=== PATIENT | female | born 1990 | race Asian ===

== ENCOUNTER → 2016-07-16 | Outpatient (REF) | payer SELFPAY ==
[2016-07-16 17:33] LABS: BASO % 0.5 % (0.0-1.0); EOS # 0.2 K/mm3 (0.0-0.50); EOS % 4.3 % (0.0-3.0); LARGE UNSTAINED CELL # 0.1 K/mm3 (0.0-0.4); LARGE UNSTAINED CELL % 1.9 % (0.0-4.0); LYMPH # 2.5 K/mm3 (1.5-6.5); LYMPH % 39.3 % (24.0-44.0); MEAN CORPUSCULAR HEMOGLOBIN 29.2 pg (27.0-33.0); MEAN CORPUSCULAR HGB CONC 33.2 g/dl (32.0-36.5); MEAN CORPUSCULAR VOLUME 88.2 fl (80.0-96.0); MONO # 0.5 K/mm3 (0.0-0.8); MONO % 8.2 % (0.0-5.0); NEUTROPHILS # 2.7 K/mm3 (1.8-7.7); NEUTROPHILS % 45.7 % (36.0-66.0); PLATELET COUNT, AUTOMATED 287 k/mm3 (150-450); RED CELL DISTRIBUTION WIDTH 12.2 % (11.5-14.5); WHITE BLOOD COUNT 5.9 K/mm3 (4.0-10.0)
== END ==
LOC: M LAB REF 16:14
PROVIDERS: ATTEND Physician Assistant
DX: R10.30 Lower abdominal pain, unspecified (principal)

== ENCOUNTER 2019-02-13 12:26 | Inpatient (IN) | payer OTHER ==
[~2019-02-13] VITALS: Ht 147.3 cm; Wt 79.3 kg
[2019-02-13] MEDS ORDERED: BENZ-18 PO (12:50)
[2019-02-13] MEDS ORDERED: AMOX875T2 PO (12:50)
[2019-02-13 13:14] LABS: HEMOGLOBIN 14.7 g/dl (12.0-15.5); MEAN CORPUSCULAR HEMOGLOBIN 28.4 pg (27.0-33.0); MEAN CORPUSCULAR HGB CONC 32.7 g/dl (32.0-36.5); PLATELET COUNT, AUTOMATED 542 10^3/uL (150-450); RED BLOOD COUNT 5.17 10^6/uL (4.00-5.40); WHITE BLOOD COUNT 12.7 10^3/uL (4.0-10.0)
[2019-02-13] MEDS ORDERED: IPRATROPIUM 0.5MG/ALBUTEROL 2.5MG INH SOL UD 3ML (DUONEB)(J7620) NEB ONE (13:30)
[2019-02-13] MEDS ORDERED: HYDROMORPHONE HCL 0.5 MG/ 0.5 ML SYRINGE (J1170 PER 1) IV PRN (13:30)
[2019-02-13] MEDS ORDERED: ALBUTEROL SULFATE 2.5 MG/0.5 ML INH NEB SOLN INH ONE (13:30)
--- NOTE | 2019-02-13 13:34 | REP ---
Two-view chest: 02/13/2019. Indication: Dyspnea. Cough. Comparison: None. Findings: Subtle air space consolidation is present within the right lower lobe. There is no pleural effusion or pneumothorax. The mediastinal silhouette is unremarkable. Impression: Small right lower lobe pneumonia. Electronically Signed by Mike Main DO 02/13/2019 01:26 P
[2019-02-13 13:37] LABS: ATYPICAL LYMPH 3 % (0-5); LYMPHOCYTES 10 % (16-44); METAMYELOCYTES 1 % (0-0); MONOCYTES 2 % (0-5); MYELOCYTES 1 % (0-0); NEUTROPHILS 83 % (28-66); PLATELET ESTIMATE INCREASED (NORMAL)
[2019-02-13 13:39] LABS: BLOOD UREA NITROGEN 9 MG/DL (7-18); CALCIUM LEVEL 9.2 MG/DL (8.5-10.1); CARBON DIOXIDE LEVEL 24 MEQ/L (21-32); CHLORIDE LEVEL 101 MEQ/L (98-107); CREATININE FOR GFR 0.82 MG/DL (0.55-1.30); GLOMERULAR FILTRATION RATE > 60.0 (>60); GLUCOSE, FASTING 168 MG/DL (70-100); SODIUM LEVEL 138 MEQ/L (136-145)
[2019-02-13] MEDS ORDERED: NS 1,000 ML IV ONE (13:45)
[2019-02-13 13:55] LABS: INFLUENZA A AMPLIFICATION NEGATIVE (NEGATIVE); INFLUENZA B AMPLIFICATION NEGATIVE (NEGATIVE)
[2019-02-13] MEDS ORDERED: VENTAER INH (14:55)
[2019-02-13] MEDS ORDERED: PRED50TA PO (14:55)
[2019-02-13] MEDS ORDERED: MUCI1TAB16 PO (14:55)
[2019-02-13] MEDS ORDERED: IPRATROPIUM 0.5MG/ALBUTEROL 2.5MG INH SOL UD 3ML (DUONEB)(J7620) INH PRN (16:45)
[2019-02-13 17:15] VITALS: BP 118/72
[2019-02-13] MEDS: IPRATROPIUM 0.5MG/ALBUTEROL 2.5MG INH SOL UD 3ML (DUONEB)(J7620) INH SCH (18:08)
--- NOTE | 2019-02-13 18:09 | ECGEPIP ---
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
[2019-02-13] MEDS ORDERED: SLF 3 ML SYR IV PRN (18:30)
[2019-02-13 20:00] VITALS: BP 120/64
[2019-02-13] MEDS: SLF 3 ML SYR IV SCH (21:12)
[2019-02-14] MEDS: IPRATROPIUM 0.5MG/ALBUTEROL 2.5MG INH SOL UD 3ML (DUONEB)(J7620) INH SCH ×7 (00:26→23:04)
[2019-02-14] MEDS: LevoFLOXacin IV 750 MG in IV 1 EA IV SCH (00:33)
[2019-02-14 04:00] VITALS: BP 131/65
[2019-02-14] MEDS ORDERED: LevoFLOXacin 750 MG TABLET PO SCH ×2 (06:00)
[2019-02-14] MEDS: SLF 3 ML SYR IV SCH ×3 (06:01→21:38)
--- NOTE | 2019-02-14 07:52 | HPE ---
DATE OF ADMISSION: 02/13/2019 ATTENDING: Dr. Fazal Elena PRIMARY CARE PROVIDER: Dr. Nunu Jimenez. REASON FOR ADMISSION: Hypoxia on room air. HISTORY OF PRESENT ILLNESS: This is a very pleasant 28-year-old female who presented to the emergency room after being hypoxic in her primary care provider's office earlier this morning. The patient states about two weeks ago she noticed that she was having upper respiratory like symptoms which started as a dry violent cough. She states she was unable to sleep at night because of the cough even if she sat up at an angle or straight up. She was evaluated by primary care provider about five days later who states that she had a possible viral upper respiratory illness (URI) and prescribed her Mucinex and an inhaler. She was recommended to followup one week later and she states that during that time she had subjective fevers but did not take her temperature. She noted that her dry cough became productive in nature, more yellow in color. She denied having any chest pain but she does admit to having a sore throat that was from all of the coughing. She states that at her followup though her primary care provider noticed some wheezing and shortness of breath. She also started to complain of ear pain and during that examination she had some ear fullness. She was prescribed Augmentin for ten days but only completed five days of the antibiotic to this date. She went to her primary care provider as scheduled today and at her office she was noted to be satting at 88% on room air and was advised to go to the emergency room (ER) for further evaluation. In the ER chest x-ray showed a small right lower lobe pneumonia and hypoxia on room air satting at 87%. The hospitalist team was then called for admission. PAST MEDICAL HISTORY: 1. History of bilateral plantar fascitis. 2. Possible exercise induced asthma, currently not on inhalers. PAST SURGICAL HISTORY: [place]it teeth removed in 2013. FAMILY HISTORY: Father alive with diabetes. Mother alive with no pertinent medical history. Grandmother colon cancer. One sister with no medical problems. SOCIAL HISTORY: Denies being sexually active. No recent pets. Admits to alcohol use but last alcohol use was five months prior. Denies any tobacco abuse or vaping. Denies any sexual history as well. ALLERGIES: Denies any known drug allergies. HOME MEDICATIONS: - Ibuprofen 600 mg - Augmentin 875, 125 mg. - Ventolin inhaler - prednisone 50 mg one tablet orally once a day for five days, completed prior to admission. REVIEW OF SYSTEMS: Unless stated above, the remaining ten point review of systems is negative. PHYSICAL EXAMINATION: Vital signs: Temperature 98.8, pulse 77, respiratory rate 20, blood pressure 118/72 (87) pulse ox 96% on 2 liters of nasal cannula). General: This is a pleasant 28-year-old female who appears in mild distress. She is using accessory muscles, appears pale with intermittent bilateral hand tremors. HEENT: Normocephalic atraumatic. Pupils equal, round, and reactive. Extraocular movements are intact. No sclerae icterus. Moist mucous membranes. No jugular venous distention (JVD) noted. Lungs: Diffuse bilateral wheezing with decreased air movements throughout. E to A egophony in the right lower lobe with slight decrease in percussion in the right lower lobe as well. Accessory muscle use and mild respiratory distress. Heart: Regular rate and rhythm, no audible murmurs, rubs, gallops. No lower extremity edema. No adenopathy of the cervical nodes noted. Psychiatric: Appropriate mood and affect. Neurologic: No neurologic focal deficits noted. LABORATORY DATA: WBC 12.7, hemoglobin 14.7, hematocrit 45.0, platelets 542. Chemistries: Sodium 138, potassium 4.0, chloride 102, carbon dioxide 24, anion gap 13, BUN 9, creatinine 0.82. Fasting glucose 168, calcium 9.2. Serology: Influenza A and B negative. Microbiology: Blood culture times one pending. IMAGING: Chest x-ray positive for a small right lower pneumonia. ASSESSMENT AND PLAN: This is a 28-year-old female with a pertinent past medical history of reactive airway disease in her childhood who presented to the emergency room (ER) for hypoxia. Hypoxia secondary to right lower lobe pneumonia, can be 24 hour pneumonia who failed outpatient treatment. We will place her on antibiotics, Levaquin for the next five days and monitor her clinical improvement. We have placed her on DuoNebs, and scheduled as needed to help with he wheezing. No additional prednisone will be added while admitted. She completed a five day course of 50 mg prior to presentation. Respiratory panel ordered as well as atypical to see if she is on appropriate coverage. Recommendations do include that once clinically stable when she follows up with her primary care provider consider getting pulmonary function tests to see if she has underlying asthma. No labs were ordered. We will follow clinical improvement once she is clinically stable the patient can be discharged. Deep venous thrombosis (DVT) prophylaxis is actually thromboembolic deterrent stockings (TEDs), sequentials and activity as tolerated. DISPOSITION: Possible one to two nights admission prior to discharge. Patient was seen and examined by me with the residents. I agree with the discharge plan and the above-stated document I was personally present with the resident and personally examined the patient and reviewed the patient's chart. Ulices KENDRICK
[2019-02-14 08:00] VITALS: BP 119/60
[2019-02-14] MEDS ORDERED: INFLUENZA QUADRIVALENT PF VACCINE 0.5ML SYRINGE (90686) IM ONE (09:00)
[2019-02-14 12:00] VITALS: BP 122/62
--- NOTE | 2019-02-14 14:19 | IPNPDOC ---
Date Seen The patient was seen on 02/14/19. Progress Note SUBJECTIVE: Patient seen and examined this morning. She states is feeling much better. Her breathing has improved since being admitted. She still is mouth breathing but doesnt feel as tight in her chest. She would like to know when she can go home, for she needs to tell her boss. She has no complaints today. She would like a work note on the day of discharge. Patient denies chest pain, shortness breath, nausea, vomiting, fevers or chills. OBJECTIVE PHYSICAL EXAMINATION: VITAL SIGNS: Please see below. GENERAL: Pleasant 28-year-old female sitting up in bed awake alert oriented speaking in complete sentences no acute distress HEENT: Moist mucous membranes no elevation in CVP CARDIOVASCULAR: S1 S2 regular no additional heart sounds appreciated. RESPIRATORY: There to auscultate bilaterally in the upper lobes. Wheezing appreciated in the right lower lobe (improving). Mouth breathing with no accessory muscle use. No increased secretion but there adequate productive cough ABDOMINAL: Bowel sounds present abdomen soft and non-tender EXTREMITIES: No clubbing cyanosis or edema NEUROLOGICAL: Spontaneously moves all 4 extremities cranial 2 through 12 grossly intact no gross focal deficits appreciated PSYCHOLOGICAL: Appropriate mood but slightly flat affect LABORATORY DATA, MICROBIOLOGY: Please see below. IMAGING STUDIES: ASSESSMENT AND PLAN: This is a 76-xmdc-npq-year-old female with community acquired pneumonia PROBLEMS: Community Acquired Pneumonia -Hypoxia on admission resolved -Respiratory panel positive for Mycoplasma pneumonia. -c/w Levaquin 750 daily for a total of 5 days -Will add incentive spirometry today to help break up cough -Recommend PFTs upon discharge to assess for possible asthma -HIV testing pending DVT prophylaxis: Teds and sequentials and activity as tolerated DISPOSITION: Pending respiratory status possible discharge in a.m. VS, I&O, [facility] Vital Signs/I&O Vital Signs Date Time Temp Pulse Resp B/P (MAP) Pulse Ox O2 Delivery O2 Flow Rate FiO2 02/14/19 12:00 98.7 96 19 122/62 (82) 97 Room Air 02/14/19 04:00 2.0 I&O- Last 24 Hours up to 6 AM 02/14/19 06:00 Intake Total 270 ml Output Total 1200 ml Balance -930 ml Laboratory Data 24H LABS Laboratory Tests 2 02/13/19 19:35: Microbiology Microbiology 11/18/19 Respiratory Virus Panel (PCR) (DANIEL) - Final, Complete Mycoplasma Pneumoniae 02/13/19 Gram Stain - Final, Resulted 02/13/19 Sputum Culture, Resulted Pending 02/13/19 Blood Culture - Preliminary, Resulted No growth after 24 hours . All specim... GME ATTESTATION GME ATTESTATION My faculty preceptor for this patient encounter was physically present during the encounter and was fully available. All aspects of the patient interview, examination, medical decision making process, and medical care plan development were reviewed and approved by the faculty preceptor. The faculty preceptor is aware and concurs with the plan as stated in the body of this note and will attest to such by his/her cosignature. ATTENDING NOTE Patient was seen and examined by me this morning with the residents. Agree with the above assessment and plan IONA MARI DO Feb 14, 2019 14:19 KRISTINA DISLA MD Feb 15, 2019 14:20
[2019-02-14 16:00] VITALS: BP 128/65
[2019-02-14 20:00] VITALS: BP 118/67
[2019-02-15] MEDS: LevoFLOXacin IV 750 MG in IV 1 EA IV SCH (00:14)
[2019-02-15] MEDS: IPRATROPIUM 0.5MG/ALBUTEROL 2.5MG INH SOL UD 3ML (DUONEB)(J7620) INH SCH ×2 (03:27→07:20)
[2019-02-15 06:00] VITALS: BP 118/73
[2019-02-15] MEDS: SLF 3 ML SYR IV SCH (06:44)
[2019-02-15] MEDS ORDERED: LEVO750T13 PO ×2 (07:27→07:29)
[2019-02-15 08:00] VITALS: BP 118/65
[2019-02-15] MEDS ORDERED: INFLUENZA QUADRIVALENT PF VACCINE 0.5ML SYRINGE (90686) IM ONE (09:00)
[2019-02-15 10:50] LABS: HIV 1&2 SCREEN CENTAUR NEGATIVE (NEGATIVE)
--- NOTE | 2019-02-15 11:36 | DS.PDOC ---
Discharge Summary General Date of Admission Feb 13, 2019 at 15:17 Date of Discharge 02/15/2019 Discharge Summary DISCHARGE DIAGNOSIS: Community Acquired Pneumonia PROCEDURES PERFORMED DURING STAY: None. CONSULTANTS: None. HOSPITAL COURSE: While the patient was admitted he was started on IV antibiotics. Respiratory status improved. Respiratory panel was positive for Mycoplasma. Incentive spirometry was added to help with mucus clearance. She was stable to be discharged today. She was advised to follow-up with her primary care provider to have possible testing of PFTs to see if she has an underlying restrictive lung disease. She is agreeable to this plan. Antibiotics for the remaining 3 days were sent to the pharmacy. DISCHARGE MEDICATIONS: Please see below. ALLERGIES: Please see below. SUBJECTIVE: She has no complaints today. She would like a work note on the day of discharge. Patient denies chest pain, shortness breath, nausea, vomiting, fevers or chills. OBJECTIVE PHYSICAL EXAMINATION: VITAL SIGNS: Please see below. GENERAL: Pleasant 28-year-old female sitting up in bed awake alert oriented speaking in complete sentences no acute distress HEENT: Moist mucous membranes no elevation in CVP CARDIOVASCULAR: S1 S2 regular no additional heart sounds appreciated. RESPIRATORY: Clear to auscultate bilaterally no audible wheezing rhonchus or rales ABDOMINAL: Bowel sounds present abdomen soft and non-tender EXTREMITIES: No clubbing cyanosis or edema NEUROLOGICAL: Spontaneously moves all 4 extremities cranial 2 through 12 grossly intact no gross focal deficits appreciated PSYCHOLOGICAL: Appropriate mood but slightly flat affect LABORATORY DATA, MICROBIOLOGY: Please see below. IMAGING STUDIES: 02/13/2019 Chest x-ray Impression: Small right lower lobe pneumonia. DVT prophylaxis: Teds and sequentials and activity as tolerate ASSESSMENT AND PLAN: This is a 10-h[age]hl[age]-year-old female with community acquired pneumonia PROBLEMS: Community Acquired Pneumonia -Hypoxia on admission resolved -Respiratory panel positive for Mycoplasma pneumonia. -c/w Levaquin 750 daily for a total of 5 days -Recommend PFTs upon discharge to assess for possible asthma -HIV testing Negative DISPOSITION: Home. DISCHARGE CONDITION: Improved and Stable. PROGNOSIS: Good FOLLOW UP: 1. Follow-up with primary care provider in 7-10 days 2. 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 3. Discuss with PCP about possible PFT testing to look for underlying restrictive lung disease 4. If symptoms return or worsen please call your PCP or return to the ER. ACTIVITY: As prior to admission. DIET: As prior to admission TIME SPENT ON DISCHARGE: 50 minutes Vital Signs/I&Os Vital Signs Date Time Temp Pulse Resp B/P (MAP) Pulse Ox O2 Delivery O2 Flow Rate FiO2 02/15/19 08:00 98.3 98 18 118/65 (82) 95 Room Air 02/14/19 04:00 2.0 I&O- Last 24 Hours up to 6 AM 02/15/19 05:59 Intake Total 2510 ml Output Total 2350 ml Balance 160 ml Microbiology Microbiology 02/13/19 Respiratory Virus Panel (PCR) (DANIEL) - Final, Complete Mycoplasma Pneumoniae 02/13/19 Gram Stain - Final, Resulted 02/13/19 Sputum Culture, Resulted Pending 02/13/19 Blood Culture - Preliminary, Resulted No growth after 24 hours . All specim... Discharge Medications Scheduled Levofloxacin (Levofloxacin) 750 Mg Tablet, 1 TAB PO DAILY Scheduled PRN Albuterol Sulfate (Ventolin Hfa) 18 Gm Hfa.aer.ad, 2 PUFF INH Q4H PRN for SOB/COUGH, (Reported) Benzonatate (Benzonatate) 100 Mg Capsule, 100 MG PO TID PRN for COUGH, (Reported) Guaifenesin (Mucinex) 1,200 Mg Tab.er.12h, 1,200 MG PO BID PRN for CONGESTION, (Reported) Allergies Coded Allergies: No Known Allergies (Verified Allergy, Unknown, 02/13/19) GME ATTESTATION GME ATTESTATION My faculty preceptor for this patient encounter was physically present during the encounter and was fully available. All aspects of the patient interview, examination, medical decision making process, and medical care plan development were reviewed and approved by the faculty preceptor. The faculty preceptor is aware and concurs with the plan as stated in the body of this note and will attest to such by his/her cosignature. ATTENDING NOTE Patient was seen and examined by me this morning with the residents. Agree with the above assessment and plan IONA MARI DO Feb 15, 2019 11:36 KRISTINA DISLA MD Feb 15, 2019 14:25
[2019-02-17 00:07] LABS: BODY FLUID CULTURE Not Indicated (.); LEGIONELLA ANTIGEN URINE Negative (Negative); ORGANISM ID Not indicated. (.); SPECIMEN SOURCE Urine (.); URINE STREP PNEUMONIAE ANTIGEN Negative (Negative)
== END 2019-02-15 11:52 | disposition home or self-care (01) | DRG 139 ==
LOC: EDBD 12:26 → M ED 12:26 → M ED INP 15:17 → M PED 18:01
PROVIDERS: ADMIT Internal Medicine; ATTEND Internal Medicine
DX: J18.9 Pneumonia, unspecified organism (principal); Z79.899 Other long term (current) drug therapy

== ENCOUNTER → 2019-05-01 | Outpatient (CLI) | payer BC, OTHER ==
[~2019-05-01] MED LIST: AMOX875T2 PO; BENZ-18 PO; LEVO750T13 PO; MUCI1TAB16 PO; PRED50TA PO; VENTAER INH
--- NOTE | 2019-05-01 10:36 | PFTRPT ---
Site: [facility], [address] [place] [address], [id number] ID: [id number] Name: BRANDO RUBIO Visit Date: 05/01/2019 Second ID: [id number] Referring Doctor: Nunu Jimenez MD Reviewing Doctor: Janusz De Jesus MD Professor Of Biology: Tino NEWELL RRT Age: 29 : 1990 Sex: Female Race: <Unspecified> Height: 59.00 Inches Weight: 173.00 Lbs BSA: 1.73 Order IDs: [id number] Requested Test(s): <RESP-PFT.PFT B/A> Diagnosis: R06.2 test meet the ATS standards for acceptability and repeatability. Pt was given four puffs of albuterol for postbronchodilator. Review Status: Not Reviewed Pre-Bronch Post-Bronch Pred Actual %Pred Actual %Chng SPIROMETRY FVC (L) 3.19 2.92 91 3.04 4 FEV1 (L) 2.73 2.33 85 2.55 9 FEV1/FVC (%) 84 80 94 84 5 FEF 25% (L/sec) 5.17 3.90 75 4.69 20 FEF 50% (L/sec) 4.49 2.78 61 3.57 28 FEF 75% (L/sec) 1.90 0.97 50 1.46 50 FEF 25-75% (L/sec) 3.18 2.21 69 2.93 32 FEF Max (L/sec) 6.26 3.98 63 4.75 19 FIVC (L) 2.92 2.50 -14 FIF 50% (L/sec) 4.03 2.93 72 3.10 5 FIF Max (L/sec) 2.94 3.18 8 MVV (L/min) 98 61 62 Expiratory Time (sec) 7.14 4.99 -30 Back Extrap Vol (L) 0.12 0.08 -33 Time To FEFmax (sec) 0.212 0.128 -39 LUNG VOLUMES SVC (L) 3.16 2.80 88 IC (L) 1.99 2.51 126 ERV (L) 1.17 0.29 25 TGV (L) 2.31 1.90 82 RV (Pleth) (L) 1.14 1.60 140 TLC (Pleth) (L) 4.30 4.40 102 RV/TLC (Pleth) (%) 27 36 134 DIFFUSION DLCOunc (ml/min/mmHg) 22.90 16.05 70 DLCOcor (ml/min/mmHg) 22.90 16.58 72 DL/VA (ml/min/mmHg/L) 5.33 4.59 86 VA (L) 4.30 3.62 84 BHT (sec) 10.40 IVC (L) 2.71 TLC (SB) (L) 3.77 AIRWAYS RESISTANCE Raw (cmH2O/L/s) 1.86 1.96 105 Gaw (L/s/cmH2O) 1.03 0.51 49 sRaw (cmH2O*s) 4.76 4.44 93 sGaw (1/cmH2O*s) 0.20 0.23 112 BLOOD GASES Hgb (gm/dL) 12.4
== END ==
LOC: M CARPUL 09:40
PROVIDERS: ATTEND Family Medicine
DX: R06.2 Wheezing (principal)

== ENCOUNTER → 2019-05-15 | Outpatient (CLI) | payer BC ==
[~2019-05-15] MED LIST changes: +METHACHOLINE KIT (J7674) INH ONE
--- NOTE | 2019-05-15 10:24 | PFTRPT ---
Site: [facility], [address] [place], [address] ID: [id number] Name: BRANDO RUBIO Visit Date: 05/15/2019 Second ID: [id number] Referring Doctor: Nunu Jimenez MD Reviewing Doctor: Janusz De Jesus MD Medical Delivery Driver: Tino NEWELL RRT Age: 29 : 1990 Sex: Female Race: <Unspecified> Height: 59.00 Inches Weight: 173.00 Lbs BSA: 1.73 Order IDs: [id number] Requested Test(s): <RESP-PFT.METH CHAL> Diagnosis: R06.2 of albuterol for postbronchodilator. Review Status: Not Reviewed Pre-Bronch Post-Bronch Pred Actual %Pred Actual %Chng SPIROMETRY FVC (L) 3.19 2.82 88 2.98 5 FEV1 (L) 2.73 2.15 78 2.39 10 FEV1/FVC (%) 84 76 90 80 4 FEF 25% (L/sec) 5.17 4.21 81 4.38 3 FEF 50% (L/sec) 4.49 2.02 45 2.92 44 FEF 75% (L/sec) 1.89 0.84 44 1.22 44 FEF 25-75% (L/sec) 3.18 1.78 56 2.48 39 FEF Max (L/sec) 6.26 4.31 68 4.39 1 FIVC (L) 2.75 2.61 -5 FIF 50% (L/sec) 4.03 2.81 69 2.40 -14 FIF Max (L/sec) 3.01 2.96 -1 Expiratory Time (sec) 6.90 6.47 -6 Back Extrap Vol (L) 0.08 0.08 9 Time To FEFmax (sec) 0.130 0.167 28
== END ==
LOC: M CARPUL 09:49
PROVIDERS: ATTEND Family Medicine
DX: R06.2 Wheezing (principal)
CPT/HCPCS: 94070; J7674

== ENCOUNTER → 2019-06-28 | Outpatient (REF) | payer BC ==
[~2019-06-28] MED LIST changes: -METHACHOLINE KIT (J7674) INH ONE
[2019-06-28 14:03] LABS: THYROID STIMULATING HORMONE 7.22 uIU/ML (0.358-3.740)
== END ==
LOC: M SFHCPLAZ 09:26
PROVIDERS: ATTEND Family Medicine
DX: L65.9 Nonscarring hair loss, unspecified (principal)

== ENCOUNTER → 2019-06-30 | Outpatient (REF) | payer BC ==
[2019-06-30 13:52] LABS: FREE T4 1.03 NG/DL (0.76-1.46); THYROID STIMULATING HORMONE 6.88 uIU/ML (0.358-3.740)
== END ==
LOC: M SFHCPLAZ 09:14
PROVIDERS: ATTEND Family Medicine
DX: R79.89 Other specified abnormal findings of blood chemistry (principal)

== ENCOUNTER → 2019-12-22 | Outpatient (CLI) | payer BC ==
[2019-12-22 11:51] LABS: FREE T4 1.26 NG/DL (0.76-1.46); THYROID STIMULATING HORMONE 6.86 uIU/ML (0.358-3.740)
== END ==
LOC: M PLALAB 08:48
PROVIDERS: ATTEND Family Medicine
DX: E03.9 Hypothyroidism, unspecified (principal)

== ENCOUNTER → 2020-04-24 | Outpatient (REF) | payer BC ==
[2020-04-24 11:57] LABS: ALBUMIN 3.6 GM/DL (3.2-5.2); ALT/SGPT 18 U/L (12-78); BILIRUBIN,TOTAL 0.6 MG/DL (0.2-1.0); BLOOD UREA NITROGEN 8 MG/DL (7-18); CARBON DIOXIDE LEVEL 32 MEQ/L (21-32); CHLORIDE LEVEL 104 MEQ/L (98-107); CHOLESTEROL LEVEL 199 MG/DL (<200); CHOLESTEROL RISK RATIO 3.901 (<5); CREATININE FOR GFR 0.66 MG/DL (0.55-1.30); GLOMERULAR FILTRATION RATE > 60.0 (>60); GLUCOSE, FASTING 98 MG/DL (70-100); HDL CHOLESTEROL 51 MG/DL (>40); LDL CHOLESTEROL 130 MG/DL (<100); NON-HDL-C 148 MG/DL; POTASSIUM SERUM 4.4 MEQ/L (3.5-5.1); SODIUM LEVEL 140 MEQ/L (136-145); TOTAL PROTEIN 6.9 GM/DL (6.4-8.2); TRIGLYCERIDES LEVEL 88 MG/DL (<150)
== END ==
LOC: M SFHCPLAZ 09:03
PROVIDERS: ATTEND Family Medicine
DX: Z13.220 Encounter for screening for lipoid disorders (principal); Z13.1 Encounter for screening for diabetes mellitus; E03.9 Hypothyroidism, unspecified

== ENCOUNTER → 2021-09-11 | Outpatient (CLI) | payer BC ==
[2021-09-11 13:22] LABS: BASO % 0.7 % (0.0-1.0); EOS # 0.2 10^3/uL (0.0-0.5); HEMATOCRIT 40.7 % (36.0-47.0); HEMOGLOBIN 13.4 g/dl (12.0-15.5); LYMPH # 2.3 10^3/uL (1.5-5.0); LYMPH % 41.4 % (24.0-44.0); MEAN CORPUSCULAR HEMOGLOBIN 29.5 pg (27.0-33.0); MEAN CORPUSCULAR HGB CONC 32.9 g/dl (32.0-36.5); MEAN CORPUSCULAR VOLUME 89.5 fl (80.0-96.0); MONO # 0.5 10^3/uL (0.0-0.8); MONO % 8.1 % (2.0-8.0); NEUTROPHILS # 2.5 10^3/uL (1.5-8.5); NEUTROPHILS % 45.6 % (36.0-66.0); PLATELET COUNT, AUTOMATED 269 10^3/uL (150-450); RED BLOOD COUNT 4.55 10^6/uL (4.00-5.40); WHITE BLOOD COUNT 5.5 10^3/uL (4.0-10.0)
[2021-09-11 13:30] LABS: AMORPHOUS SEDIMENT SMALL (NEGATIVE); APPEARANCE, URINE TURBID (CLEAR); BACTERIA, URINE AUTO 3+ (NEGATIVE); BILIRUBIN, URINE AUTO NEGATIVE (NEGATIVE); BLOOD, URINE BLOOD NEGATIVE (NEGATIVE); COLOR, URINE YELLOW (YELLOW); GLUCOSE, URINE (UA) AUTO NEGATIVE (NEGATIVE); KETONE, URINE AUTO NEGATIVE (NEGATIVE); LEUKOCYTE ESTERASE, URINE AUTO TRACE (NEGATIVE); MUCUS, URINE MODERATE (NEGATIVE); NITRITE, URINE AUTO NEGATIVE (NEGATIVE); PROTEIN, URINE AUTO NEGATIVE (NEGATIVE); RBC, URINE AUTO 0 /HPF (0-3); SQUAMOUS EPITHELIAL CELL UR AU 3 /HPF (0-6); UROBILINOGEN, URINE AUTO 0.2 mg/dL (0.0-2.0); WBC, URINE AUTO 1 /HPF (0-3)
[2021-09-11 13:39] LABS: ALBUMIN 3.6 GM/DL (3.2-5.2); ALT/SGPT 16 U/L (12-78); BILIRUBIN,TOTAL 0.8 MG/DL (0.2-1.0); BLOOD UREA NITROGEN 7 MG/DL (7-18); CALCIUM LEVEL 8.6 MG/DL (8.5-10.1); CARBON DIOXIDE LEVEL 26 MEQ/L (21-32); CHLORIDE LEVEL 107 MEQ/L (98-107); CREATININE FOR GFR 0.64 MG/DL (0.55-1.30); FREE T4 1.15 NG/DL (0.76-1.46); GLOMERULAR FILTRATION RATE > 60.0 (>60); GLUCOSE, FASTING 95 MG/DL (70-100); POTASSIUM SERUM 4.2 MEQ/L (3.5-5.1); SODIUM LEVEL 140 MEQ/L (136-145); TOTAL PROTEIN 6.9 GM/DL (6.4-8.2)
== END ==
LOC: M PLALAB 09:39
PROVIDERS: ATTEND Physician Assistant
DX: R10.30 Lower abdominal pain, unspecified (principal)

== ENCOUNTER → 2021-10-02 | Outpatient (CLI) | payer BC | LOC: M RAD 16:28 | PROVIDERS: ATTEND Physician Assistant | DX: R10.30 Lower abdominal pain, unspecified (principal) ==

== ENCOUNTER → 2021-10-16 | Outpatient (REF) | payer BC | LOC: M SFHCPLAZ 10:01 | PROVIDERS: ATTEND Physician Assistant | DX: R19.7 Diarrhea, unspecified (principal) ==

== ENCOUNTER → 2021-11-13 | Outpatient (REF) | payer BC ==
[~2021-11-13] MED LIST changes: +LEVO1TAB40 PO; -LEVO750T13 PO
== END ==
LOC: M SFHCPLAZ 15:04
PROVIDERS: ATTEND Physician Assistant
DX: R19.7 Diarrhea, unspecified (principal)

== ENCOUNTER → 2022-07-14 | Outpatient (CLI) | payer BC ==
[2022-07-14 15:12] LABS: BASO % 0.5 % (0.0-1.0); EOS # 0.2 10^3/uL (0.0-0.5); EOS % 2.9 % (0.0-3.0); HEMATOCRIT 42.8 % (36.0-47.0); HEMOGLOBIN 13.6 g/dl (12.0-15.5); LYMPH # 1.8 10^3/uL (1.5-5.0); LYMPH % 31.9 % (24.0-44.0); MEAN CORPUSCULAR HEMOGLOBIN 29.4 pg (27.0-33.0); MEAN CORPUSCULAR HGB CONC 31.8 g/dl (32.0-36.5); MEAN CORPUSCULAR VOLUME 92.4 fl (80.0-96.0); MONO # 0.5 10^3/uL (0.0-0.8); MONO % 8.5 % (2.0-8.0); NEUTROPHILS # 3.1 10^3/uL (1.5-8.5); NEUTROPHILS % 55.7 % (36.0-66.0); PLATELET COUNT, AUTOMATED 296 10^3/uL (150-450); RED BLOOD COUNT 4.63 10^6/uL (4.00-5.40); WHITE BLOOD COUNT 5.5 10^3/uL (4.0-10.0)
[2022-07-14 15:33] LABS: ALBUMIN 3.9 G/DL (3.2-5.2); ALKALINE PHOSPHATASE 52 U/L (46-116); ALT/SGPT 13 U/L (7.0-40); AST/SGOT 14 U/L (<34); BILIRUBIN,TOTAL 0.7 MG/DL (0.3-1.2); BLOOD UREA NITROGEN 20 MG/DL (9-23); CALCIUM LEVEL 8.7 MG/DL (8.5-10.1); CARBON DIOXIDE LEVEL 27 MMOL/L (20-31); CHLORIDE LEVEL 104 MMOL/L (98-107); CHOLESTEROL LEVEL 204 MG/DL (<200); CHOLESTEROL RISK RATIO 3.44 (<5); CREATININE FOR GFR 0.68 MG/DL (0.55-1.30); GLOMERULAR FILTRATION RATE > 60.0 (>60); GLUCOSE, FASTING 104 MG/DL (60-100); HDL CHOLESTEROL 59.2 MG/DL (>40); LDL CHOLESTEROL 129.8 MG/DL (<100); NON-HDL-C 144.8 MG/DL; POTASSIUM SERUM 4.5 MMOL/L (3.5-5.1); RHEUMATOID FACTOR QUANT 5.7 IU/ML (<14); SODIUM LEVEL 137 MMOL/L (136-145); THYROID STIMULATING HORMONE 5.139 uIU/ML (0.55-4.78); TRIGLYCERIDES LEVEL 75 MG/DL (<150)
[2022-07-14 15:41] LABS: HEMOGLOBIN A1c 5.5 % (4.0-6.0)
[2022-07-14 15:55] LABS: ERYTHROCYTE SEDIMENTATION RATE 26 mm/hr (0-20)
[2022-07-14 16:05] LABS: FREE T4 1.12 NG/DL (0.89-1.76)
[2022-07-16 16:09] LABS: ANTI DOUBLE STRAND-DNA AB <1 IU/mL (0-9); ANTINUCLEAR ANTIBODIES DIRECT Positive (Negative); RNP ANTIBODIES <0.2 AI (0.0-0.9); SJOGREN'S ANTI SS-A <0.2 AI (0.0-0.9); SJOGREN'S ANTI SS-B <0.2 AI (0.0-0.9); SMITH ANTIBODIES <0.2 AI (0.0-0.9)
== END ==
LOC: M PLALAB 09:34
PROVIDERS: ATTEND Physician Assistant
DX: M25.50 Pain in unspecified joint (principal); E78.5 Hyperlipidemia, unspecified

== ENCOUNTER → 2022-07-14 | Outpatient (REF) | payer BC | LOC: M SFHCPLAZ 09:42 | PROVIDERS: ATTEND Physician Assistant | DX: Z53.9 Procedure and treatment not carried out, unspecified reason (principal) ==

== ENCOUNTER → 2022-07-21 | Outpatient (REF) | payer BC ==
[2022-07-21 17:49] LABS: BASO % 0.7 % (0.0-1.0); EOS # 0.2 10^3/uL (0.0-0.5); EOS % 2.7 % (0.0-3.0); HEMATOCRIT 40.1 % (36.0-47.0); HEMOGLOBIN 13.1 g/dl (12.0-15.5); LYMPH # 2.3 10^3/uL (1.5-5.0); LYMPH % 38.6 % (24.0-44.0); MEAN CORPUSCULAR HEMOGLOBIN 29.6 pg (27.0-33.0); MEAN CORPUSCULAR HGB CONC 32.7 g/dl (32.0-36.5); MEAN CORPUSCULAR VOLUME 90.7 fl (80.0-96.0); MONO # 0.3 10^3/uL (0.0-0.8); MONO % 5.3 % (2.0-8.0); NEUTROPHILS # 3.2 10^3/uL (1.5-8.5); NEUTROPHILS % 52.5 % (36.0-66.0); PLATELET COUNT, AUTOMATED 311 10^3/uL (150-450); RED BLOOD COUNT 4.42 10^6/uL (4.00-5.40)
[2022-07-21 18:11] LABS: ERYTHROCYTE SEDIMENTATION RATE 20 mm/hr (0-20); URIC ACID 5.8 MG/DL (3.1-7.8)
[2022-07-21 18:14] LABS: C REACTIVE PROTEIN QUANTITATIV < 0.40 MG/DL (<1.0)
[2022-07-21 18:15] LABS: ALBUMIN 3.5 G/DL (3.2-5.2); ALKALINE PHOSPHATASE 54 U/L (46-116); ALT/SGPT 24 U/L (7.0-40); AST/SGOT 21 U/L (<34); BILIRUBIN,TOTAL 0.3 MG/DL (0.3-1.2); BLOOD UREA NITROGEN 9 MG/DL (9-23); CALCIUM LEVEL 8.8 MG/DL (8.5-10.1); CARBON DIOXIDE LEVEL 29 MMOL/L (20-31); CHLORIDE LEVEL 105 MMOL/L (98-107); CREATININE FOR GFR 0.64 MG/DL (0.55-1.30); GLOMERULAR FILTRATION RATE > 60.0 (>60); GLUCOSE, FASTING 114 MG/DL (60-100); POTASSIUM SERUM 4.3 MMOL/L (3.5-5.1); SODIUM LEVEL 140 MMOL/L (136-145); TOTAL PROTEIN 6.5 G/DL (5.7-8.2)
[2022-07-21 18:16] LABS: RHEUMATOID FACTOR QUANT 4.4 IU/ML (<14)
== END ==
LOC: M SFHCPLAZ 16:52
PROVIDERS: ATTEND Physician Assistant
DX: R76.8 Other specified abnormal immunological findings in serum (principal)

== ENCOUNTER → 2023-02-02 | Outpatient (CLI) | payer BC ==
[2023-02-02 15:39] LABS: BASO % 0.7 % (0.0-1.0); EOS # 0.2 10^3/uL (0.0-0.5); EOS % 3.3 % (0.0-3.0); HEMATOCRIT 40.6 % (36.0-47.0); HEMOGLOBIN 13.1 g/dl (12.0-15.5); LYMPH # 2.3 10^3/uL (1.5-5.0); MEAN CORPUSCULAR HEMOGLOBIN 29.2 pg (27.0-33.0); MEAN CORPUSCULAR HGB CONC 32.3 g/dl (32.0-36.5); MEAN CORPUSCULAR VOLUME 90.6 fl (80.0-96.0); MONO # 0.4 10^3/uL (0.0-0.8); MONO % 6.1 % (2.0-8.0); NEUTROPHILS # 3.2 10^3/uL (1.5-8.5); NEUTROPHILS % 52.6 % (36.0-66.0); PLATELET COUNT, AUTOMATED 310 10^3/uL (150-450); RED BLOOD COUNT 4.48 10^6/uL (4.00-5.40); WHITE BLOOD COUNT 6.1 10^3/uL (4.0-10.0)
[2023-02-02 16:10] LABS: ALBUMIN 3.7 G/DL (3.2-5.2); ALKALINE PHOSPHATASE 57 U/L (46-116); ALT/SGPT 13 U/L (7.0-40); AST/SGOT 13 U/L (<34); BILIRUBIN,TOTAL 0.5 MG/DL (0.3-1.2); BLOOD UREA NITROGEN 10 MG/DL (9-23); CALCIUM LEVEL 8.4 MG/DL (8.5-10.1); CARBON DIOXIDE LEVEL 27 MMOL/L (20-31); CHLORIDE LEVEL 105 MMOL/L (98-107); CHOLESTEROL LEVEL 219 MG/DL (<200); CHOLESTEROL RISK RATIO 3.75 (<5); CREATININE FOR GFR 0.53 MG/DL (0.55-1.30); FREE T3 3.3 PG/ML (2.3-4.2); FREE T4 0.99 NG/DL (0.89-1.76); GLOMERULAR FILTRATION RATE > 60.0 (>60); GLUCOSE, FASTING 89 MG/DL (60-100); HDL CHOLESTEROL 58.4 MG/DL (>40); NON-HDL-C 160.6 MG/DL; POTASSIUM SERUM 3.8 MMOL/L (3.5-5.1); SODIUM LEVEL 138 MMOL/L (136-145); THYROID STIMULATING HORMONE 3.857 uIU/ML (0.55-4.78); TOTAL PROTEIN 6.7 G/DL (5.7-8.2); TRIGLYCERIDES LEVEL 78 MG/DL (<150)
== END ==
LOC: M PLALAB 11:09
PROVIDERS: ATTEND Student in an Organized Health Care Education/Training Program
DX: Z76.89 Persons encountering health services in other specified circumstances (principal)

== ENCOUNTER → 2023-02-02 | Outpatient (CLI) | payer BC ==
[2023-02-02 15:35] LABS: TOTAL PROTEIN,RANDOM URINE 14.4 MG/DL (0.0-14.0)
[2023-02-02 15:40] LABS: BASO % 0.5 % (0.0-1.0); CREATININE,RANDOM URINE 86.4 MG/DL; EOS # 0.2 10^3/uL (0.0-0.5); EOS % 3.8 % (0.0-3.0); HEMATOCRIT 40.2 % (36.0-47.0); LYMPH # 2.1 10^3/uL (1.5-5.0); LYMPH % 35.8 % (24.0-44.0); MEAN CORPUSCULAR HEMOGLOBIN 29.3 pg (27.0-33.0); MEAN CORPUSCULAR HGB CONC 32.3 g/dl (32.0-36.5); MEAN CORPUSCULAR VOLUME 90.5 fl (80.0-96.0); MONO # 0.4 10^3/uL (0.0-0.8); NEUTROPHILS # 3.1 10^3/uL (1.5-8.5); NEUTROPHILS % 53.6 % (36.0-66.0); PLATELET COUNT, AUTOMATED 306 10^3/uL (150-450); RED BLOOD COUNT 4.44 10^6/uL (4.00-5.40); WHITE BLOOD COUNT 5.8 10^3/uL (4.0-10.0)
[2023-02-02 15:53] LABS: APPEARANCE, URINE CLEAR (CLEAR); BACTERIA, URINE AUTO NEGATIVE (NEGATIVE); BILIRUBIN, URINE AUTO NEGATIVE (NEGATIVE); BLOOD, URINE BLOOD 2+ (NEGATIVE); COLOR, URINE YELLOW (YELLOW); GLUCOSE, URINE (UA) AUTO NEGATIVE (NEGATIVE); KETONE, URINE AUTO NEGATIVE (NEGATIVE); LEUKOCYTE ESTERASE, URINE AUTO 2+ (NEGATIVE); NITRITE, URINE AUTO NEGATIVE (NEGATIVE); PROTEIN, URINE AUTO NEGATIVE (NEGATIVE); RBC, URINE AUTO 0 /HPF (0-3); SPECIFIC GRAVITY URINE AUTO 1.013 (1.002-1.035); SQUAMOUS EPITHELIAL CELL UR AU 4 /HPF (0-6); TRANSITIONAL EPITHELIAL AUTO <1 /HPF; UROBILINOGEN, URINE AUTO 0.2 mg/dL (0.0-2.0); WBC, URINE AUTO 2 /HPF (0-3)
[2023-02-02 16:05] LABS: CPK CREATINE PHOSPHOKINASE 64 U/L (34-145); LDH LACTATE DEHYDROGENASE 180 U/L (120-246)
[2023-02-02 16:06] LABS: ALBUMIN 3.5 G/DL (3.2-5.2); ALKALINE PHOSPHATASE 57 U/L (46-116); ALT/SGPT 16 U/L (7.0-40); AST/SGOT 16 U/L (<34); BILIRUBIN,TOTAL 0.5 MG/DL (0.3-1.2); BLOOD UREA NITROGEN 9 MG/DL (9-23); CALCIUM LEVEL 8.6 MG/DL (8.5-10.1); CARBON DIOXIDE LEVEL 27 MMOL/L (20-31); CHLORIDE LEVEL 107 MMOL/L (98-107); GLOMERULAR FILTRATION RATE > 60.0 (>60); GLUCOSE, FASTING 91 MG/DL (60-100); POTASSIUM SERUM 4.1 MMOL/L (3.5-5.1); SODIUM LEVEL 143 MMOL/L (136-145); TOTAL PROTEIN 6.6 G/DL (5.7-8.2)
[2023-02-02 16:06] LABS: ERYTHROCYTE SEDIMENTATION RATE 26 mm/hr (0-20)
[2023-02-02 16:07] LABS: COMPLEMENT C3 129.9 MG/DL (84.0-160.0); COMPLEMENT C4 38.6 MG/DL (12-36)
== END ==
LOC: M PLALAB 11:12
PROVIDERS: ATTEND Internal Medicine Rheumatology
DX: M35.3 Polymyalgia rheumatica (principal)

== ENCOUNTER → 2023-03-10 | Outpatient (CLI) | payer BC | LOC: M PLALAB 15:17 | PROVIDERS: ATTEND Internal Medicine Rheumatology | DX: M35.3 Polymyalgia rheumatica (principal); R76.8 Other specified abnormal immunological findings in serum; R68.2 Dry mouth, unspecified ==

== ENCOUNTER → 2023-04-13 | Outpatient (CLI) | payer BC | LOC: M PLAIMG 10:22 | PROVIDERS: ATTEND Internal Medicine Rheumatology | DX: M35.3 Polymyalgia rheumatica (principal); R76.8 Other specified abnormal immunological findings in serum; R68.2 Dry mouth, unspecified; R53.1 Weakness ==

== ENCOUNTER → 2023-05-05 | Outpatient (CLI) | payer BC | LOC: M CARPUL 09:57 | PROVIDERS: ATTEND Internal Medicine Rheumatology | DX: R68.2 Dry mouth, unspecified (principal) ==

== ENCOUNTER → 2023-06-10 | Outpatient (CLI) | payer BC ==
[2023-06-10 11:41] LABS: BASO % 0.5 % (0.0-1.0); EOS # 0.2 10^3/uL (0.0-0.5); HEMATOCRIT 41.3 % (36.0-47.0); HEMOGLOBIN 13.5 g/dl (12.0-15.5); LYMPH # 2.6 10^3/uL (1.5-5.0); LYMPH % 34.1 % (24.0-44.0); MEAN CORPUSCULAR HEMOGLOBIN 29.6 pg (27.0-33.0); MEAN CORPUSCULAR HGB CONC 32.7 g/dl (32.0-36.5); MEAN CORPUSCULAR VOLUME 90.6 fl (80.0-96.0); MONO # 0.4 10^3/uL (0.0-0.8); MONO % 5.3 % (2.0-8.0); NEUTROPHILS # 4.3 10^3/uL (1.5-8.5); NEUTROPHILS % 57.7 % (36.0-66.0); PLATELET COUNT, AUTOMATED 309 10^3/uL (150-450); RED BLOOD COUNT 4.56 10^6/uL (4.00-5.40); WHITE BLOOD COUNT 7.5 10^3/uL (4.0-10.0)
[2023-06-10 11:58] LABS: ERYTHROCYTE SEDIMENTATION RATE 36 mm/hr (0-20)
[2023-06-10 12:08] LABS: ALBUMIN 3.6 G/DL (3.2-5.2); ALKALINE PHOSPHATASE 61 U/L (46-116); ALT/SGPT 18 U/L (7.0-40); AST/SGOT 11 U/L (<34); BILIRUBIN,TOTAL 0.8 MG/DL (0.3-1.2); BLOOD UREA NITROGEN 11 MG/DL (9-23); CARBON DIOXIDE LEVEL 29 MMOL/L (20-31); CHLORIDE LEVEL 105 MMOL/L (98-107); CREATININE FOR GFR 0.69 MG/DL (0.55-1.30); GLOMERULAR FILTRATION RATE > 60.0 (>60); GLUCOSE, FASTING 167 MG/DL (60-100); POTASSIUM SERUM 4.1 MMOL/L (3.5-5.1); SODIUM LEVEL 140 MMOL/L (136-145); TOTAL PROTEIN 6.6 G/DL (5.7-8.2)
== END ==
LOC: M PLALAB 08:22
PROVIDERS: ATTEND Internal Medicine Rheumatology
DX: M35.9 Systemic involvement of connective tissue, unspecified (principal)

== ENCOUNTER → 2023-06-11 | Outpatient (REF) | payer BC | LOC: M SFHCRHEU 14:48 | PROVIDERS: ATTEND Internal Medicine Rheumatology | DX: M35.9 Systemic involvement of connective tissue, unspecified (principal); M35.3 Polymyalgia rheumatica; R76.8 Other specified abnormal immunological findings in serum; R68.2 Dry mouth, unspecified; R53.1 Weakness ==

== ENCOUNTER → 2023-11-30 | Outpatient (CLI) | payer BC ==
[2023-11-30 18:16] LABS: BASO # 0.1 10^3/uL (0.0-0.2); BASO % 0.8 % (0.0-1.0); EOS # 0.2 10^3/uL (0.0-0.5); EOS % 2.7 % (0.0-3.0); HEMATOCRIT 41.8 % (36.0-47.0); HEMOGLOBIN 13.6 g/dl (12.0-15.5); LYMPH # 2.8 10^3/uL (1.5-5.0); MEAN CORPUSCULAR HEMOGLOBIN 29.7 pg (27.0-33.0); MEAN CORPUSCULAR HGB CONC 32.5 g/dl (32.0-36.5); MEAN CORPUSCULAR VOLUME 91.3 fl (80.0-96.0); MONO # 0.5 10^3/uL (0.0-0.8); NEUTROPHILS # 3.6 10^3/uL (1.5-8.5); NEUTROPHILS % 50.2 % (36.0-66.0); PLATELET COUNT, AUTOMATED 334 10^3/uL (150-450); RED BLOOD COUNT 4.58 10^6/uL (4.00-5.40); WHITE BLOOD COUNT 7.1 10^3/uL (4.0-10.0)
[2023-11-30 18:26] LABS: ERYTHROCYTE SEDIMENTATION RATE 30 mm/hr (0-20)
[2023-11-30 18:34] LABS: C REACTIVE PROTEIN QUANTITATIV < 0.40 MG/DL (<1.0)
[2023-11-30 18:35] LABS: ALBUMIN 3.9 G/DL (3.2-5.2); ALKALINE PHOSPHATASE 63 U/L (46-116); ALT/SGPT 15 U/L (7.0-40); AST/SGOT 14 U/L (<34); BILIRUBIN,TOTAL 0.3 MG/DL (0.3-1.2); BLOOD UREA NITROGEN 8 MG/DL (9-23); CALCIUM LEVEL 8.8 MG/DL (8.5-10.1); CARBON DIOXIDE LEVEL 30 MMOL/L (20-31); CHLORIDE LEVEL 105 MMOL/L (98-107); COMPLEMENT C3 131.8 MG/DL (84.0-160.0); CREATININE FOR GFR 0.67 MG/DL (0.55-1.30); GLOMERULAR FILTRATION RATE > 60.0 (>60); GLUCOSE, FASTING 79 MG/DL (60-100); POTASSIUM SERUM 3.8 MMOL/L (3.5-5.1); SODIUM LEVEL 140 MMOL/L (136-145)
[2023-11-30 18:51] LABS: APPEARANCE, URINE HAZY (CLEAR); BACTERIA, URINE AUTO NEGATIVE (NEGATIVE); BILIRUBIN, URINE AUTO NEGATIVE (NEGATIVE); BLOOD, URINE BLOOD NEGATIVE (NEGATIVE); COLOR, URINE YELLOW (YELLOW); GLUCOSE, URINE (UA) AUTO NEGATIVE (NEGATIVE); KETONE, URINE AUTO NEGATIVE (NEGATIVE); LEUKOCYTE ESTERASE, URINE AUTO 3+ (NEGATIVE); NITRITE, URINE AUTO NEGATIVE (NEGATIVE); PROTEIN, URINE AUTO NEGATIVE (NEGATIVE); RBC, URINE AUTO 0 /HPF (0-3); SPECIFIC GRAVITY URINE AUTO 1.017 (1.002-1.035); SQUAMOUS EPITHELIAL CELL UR AU 1 /HPF (0-6); UROBILINOGEN, URINE AUTO 0.2 mg/dL (0.0-2.0); WBC, URINE AUTO 5 /HPF (0-3)
[2023-11-30 19:25] LABS: TOTAL PROTEIN,RANDOM URINE 28.9 MG/DL (0.0-14.0)
[2023-11-30 19:30] LABS: CREATININE,RANDOM URINE 119.1 MG/DL
== END ==
LOC: M PLALAB 14:28
PROVIDERS: ATTEND Internal Medicine Rheumatology
DX: R53.1 Weakness (principal)

== ENCOUNTER → 2023-11-30 | Outpatient (CLI) | payer BC ==
[2023-11-30 18:22] LABS: HEMOGLOBIN A1c 5.5 % (4.0-6.0)
[2023-11-30 18:35] LABS: CHOLESTEROL RISK RATIO 3.96 (<5); FREE T4 1.34 NG/DL (0.89-1.76); HDL CHOLESTEROL 52.5 MG/DL (>40); LDL CHOLESTEROL 131.7 MG/DL (<100); NON-HDL-C 155.5 MG/DL; THYROID STIMULATING HORMONE 9.475 uIU/ML (0.55-4.78)
== END ==
LOC: M PLALAB 14:27
PROVIDERS: ATTEND Student in an Organized Health Care Education/Training Program
DX: E03.9 Hypothyroidism, unspecified (principal)

== ENCOUNTER → 2024-06-21 | Outpatient (CLI) | payer BC ==
[2024-06-21 13:50] LABS: APPEARANCE, URINE CLEAR (CLEAR); BACTERIA, URINE AUTO NEGATIVE (NEGATIVE); BILIRUBIN, URINE AUTO NEGATIVE (NEGATIVE); BLOOD, URINE BLOOD NEGATIVE (NEGATIVE); COLOR, URINE YELLOW (YELLOW); GLUCOSE, URINE (UA) AUTO NEGATIVE (NEGATIVE); KETONE, URINE AUTO NEGATIVE (NEGATIVE); LEUKOCYTE ESTERASE, URINE AUTO TRACE (NEGATIVE); NITRITE, URINE AUTO NEGATIVE (NEGATIVE); PROTEIN, URINE AUTO NEGATIVE (NEGATIVE); RBC, URINE AUTO 1 /HPF (0-3); SPECIFIC GRAVITY URINE AUTO 1.024 (1.002-1.035); SQUAMOUS EPITHELIAL CELL UR AU 3 /HPF (0-6); UROBILINOGEN, URINE AUTO 0.2 mg/dL (0.0-2.0); WBC, URINE AUTO 1 /HPF (0-3)
[2024-06-21 13:59] LABS: BASO % 0.7 % (0.0-1.0); EOS # 0.1 10^3/uL (0.0-0.5); EOS % 2.4 % (0.0-3.0); HEMATOCRIT 40.4 % (36.0-47.0); HEMOGLOBIN 13.2 g/dl (12.0-15.5); LYMPH # 2.1 10^3/uL (1.5-5.0); LYMPH % 36.7 % (24.0-44.0); MEAN CORPUSCULAR HEMOGLOBIN 29.1 pg (27.0-33.0); MEAN CORPUSCULAR HGB CONC 32.7 g/dl (32.0-36.5); MEAN CORPUSCULAR VOLUME 89.2 fl (80.0-96.0); MONO # 0.4 10^3/uL (0.0-0.8); MONO % 6.5 % (2.0-8.0); NEUTROPHILS # 3.1 10^3/uL (1.5-8.5); NEUTROPHILS % 53.4 % (36.0-66.0); PLATELET COUNT, AUTOMATED 289 10^3/uL (150-450); RED BLOOD COUNT 4.53 10^6/uL (4.00-5.40); WHITE BLOOD COUNT 5.8 10^3/uL (4.0-10.0)
[2024-06-21 14:09] LABS: ERYTHROCYTE SEDIMENTATION RATE 28 mm/hr (0-20)
[2024-06-21 14:21] LABS: TOTAL PROTEIN,RANDOM URINE 21.6 MG/DL (0.0-14.0)
[2024-06-21 14:24] LABS: ALBUMIN 3.6 G/DL (3.2-5.2); ALKALINE PHOSPHATASE 58 U/L (35-104); ALT/SGPT 18 U/L (7.0-40); AST/SGOT 19 U/L (<34); BILIRUBIN,TOTAL 0.6 MG/DL (0.3-1.2); BLOOD UREA NITROGEN 11 MG/DL (9-23); C REACTIVE PROTEIN QUANTITATIV < 0.50 MG/DL (<1.0); CARBON DIOXIDE LEVEL 31 MMOL/L (20-31); CHLORIDE LEVEL 104 MMOL/L (98-107); COMPLEMENT C3 149.4 MG/DL (84.0-160.0); CREATININE FOR GFR 0.63 MG/DL (0.55-1.30); GLOMERULAR FILTRATION RATE > 60.0 (>60); GLUCOSE, FASTING 105 MG/DL (60-100); POTASSIUM SERUM 4.2 MMOL/L (3.5-5.1); SODIUM LEVEL 142 MMOL/L (136-145); TOTAL PROTEIN 6.8 G/DL (5.7-8.2)
[2024-06-21 14:25] LABS: CREATININE,RANDOM URINE 160.3 MG/DL
[2024-06-21 14:26] LABS: COMPLEMENT C4 37.5 MG/DL (12-36)
== END ==
LOC: M PLALAB 09:17
PROVIDERS: ATTEND Internal Medicine Rheumatology
DX: M25.9 Joint disorder, unspecified (principal)

== ENCOUNTER → 2024-07-11 | Outpatient (CLI) | payer BC ==
[~2024-07-11] MED LIST changes: -PRED50TA PO; +PRED50TA57 PO
== END ==
LOC: M RAD 14:58
PROVIDERS: ATTEND Student in an Organized Health Care Education/Training Program
DX: H93.11 Tinnitus, right ear (principal)

== ENCOUNTER → 2024-07-27 | Outpatient (CLI) | payer BC | LOC: M PLAIMG 15:04 | PROVIDERS: ATTEND Physician Assistant Medical | DX: H93.A1 Pulsatile tinnitus, right ear (principal) ==

== ENCOUNTER → 2024-08-10 | Outpatient (CLI) | payer BC | LOC: M RAD 15:27 | PROVIDERS: ATTEND Physician Assistant Medical | DX: Z00.00 Encounter for general adult medical examination without abnormal findings (principal) ==

== ENCOUNTER → 2025-01-03 | Outpatient (CLI) | payer BC | LOC: M LAB 15:13 | PROVIDERS: ATTEND Physician Assistant | DX: M25.50 Pain in unspecified joint (principal) ==

== ENCOUNTER → 2025-01-23 | Outpatient (CLI) | payer BC ==
[2025-01-23 16:02] LABS: BASO # 0.0 10^3/uL (0.0-0.2); BASO % 0.6 % (0.0-1.0); EOS # 0.1 10^3/uL (0.0-0.5); EOS % 2.3 % (0.0-3.0); LYMPH # 2.3 10^3/uL (1.5-5.0); LYMPH % 37.7 % (24.0-44.0); MONO # 0.4 10^3/uL (0.0-0.8); MONO % 6.8 % (2.0-8.0); NEUTROPHILS # 3.2 10^3/uL (1.5-8.5); NEUTROPHILS % 52.4 % (36.0-66.0); PLATELET COUNT, AUTOMATED 329 10^3/uL (150-450)
[2025-01-23 16:16] LABS: C REACTIVE PROTEIN QUANTITATIV 0.50 MG/DL (<1.0)
[2025-01-23 16:17] LABS: ALT/SGPT 14 U/L (7.0-40); AST/SGOT 18 U/L (<34); CALCIUM LEVEL 8.9 MG/DL (8.5-10.1); CARBON DIOXIDE LEVEL 29 MMOL/L (20-31); CHLORIDE LEVEL 106 MMOL/L (98-107); COMPLEMENT C4 41.6 MG/DL (12-36); CREATININE FOR GFR 0.65 MG/DL (0.55-1.30); GLOMERULAR FILTRATION RATE > 90.0 (>60); POTASSIUM SERUM 4.1 MMOL/L (3.5-5.1); SODIUM LEVEL 144 MMOL/L (136-145)
== END ==
LOC: M PLALAB 12:10
PROVIDERS: ATTEND Internal Medicine Rheumatology
DX: M35.9 Systemic involvement of connective tissue, unspecified (principal); R68.2 Dry mouth, unspecified; R53.1 Weakness; R52 Pain, unspecified; R20.0 Anesthesia of skin; R76.89 Other specified abnormal immunological findings in serum

== ENCOUNTER → 2025-01-23 | Outpatient (CLI) | payer BC ==
[2025-01-23 16:19] LABS: FREE T4 1.15 NG/DL (0.89-1.76)
== END ==
LOC: M PLALAB 12:08
PROVIDERS: ATTEND Family Medicine
DX: E03.8 Other specified hypothyroidism (principal)

== ENCOUNTER → 2025-02-16 | Outpatient (CLI) | payer BC | LOC: M PLALAB 15:36 | PROVIDERS: ATTEND Internal Medicine Rheumatology | DX: M35.9 Systemic involvement of connective tissue, unspecified (principal); R68.2 Dry mouth, unspecified; R53.1 Weakness; R20.0 Anesthesia of skin ==